=== PATIENT | male | born 1955 | race Caucasian/White ===

== ENCOUNTER 2018-07-17 08:42 | Emergency (ER) | payer MEDICARE, MEDICAID ==
[2018-07-17] MEDS ORDERED: LIDOCAINE PATCH 5% TOP PRN (09:22)
[2018-07-17] MEDS ORDERED: KETOROLAC 60 MG/2 ML VIAL IM STA (09:22)
[2018-07-17] MEDS ORDERED: diazePAM 5 MG TABLET PO STA (09:22)
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
--- NOTE | 2018-07-17 11:01 | XRAY Report ---
Reason: lumbar pain and pop Procedure Date: 07/17/2018 Accession Number: [id number] / [id number] Procedure: XR - Lumbar Spine 2 View CPT Code: FULL RESULT: EXAM: LUMBOSACRAL SPINE RADIOGRAPHY EXAM DATE: 07/17/2018 10:31 AM. CLINICAL HISTORY: Lumbar pain and pop. COMPARISONS: None. TECHNIQUE: 3 views. FINDINGS: Alignment: Grade 1 anterolisthesis L4 on L5 Bones: Five [id number] lumbar vertebral bodies are present. L1 compression. Disks: L3-L4 osteophyte Facets: L5-S1 facet arthropathy Sacroiliac Joints: Unremarkable. Soft Tissues: Normal. The visualized bowel gas pattern is normal. IMPRESSION: 1. L1 compression 2. DJD RADIA
[2018-07-17 12:35] VITALS: BP 113/75
[2018-07-17] MEDS ORDERED: oxyCODONE 5 MG TABLET PO STA (13:43)
== END 2018-07-17 13:52 | disposition home or self-care (01) ==
LOC: ED 08:42
DX: S32.010A Wedge compression fracture of first lumbar vertebra, initial encounter for closed fracture (principal); X50.0XXA Overexertion from strenuous movement or load, initial encounter; Z21 Asymptomatic human immunodeficiency virus [HIV] infection status
CPT/HCPCS: 72100; 99283; A9270

== ENCOUNTER 2022-09-18 08:00 | Outpatient (CLI) | payer MEDICARE, MEDICAID | END 2022-09-18 23:59 | disposition home or self-care (01) | LOC: LAB.R 08:00 | PROVIDERS: ATTEND Internal Medicine | DX: R60.9 Edema, unspecified (principal) | CPT/HCPCS: 83880 ==

== ENCOUNTER 2023-12-19 01:11 | Emergency (ER) | payer MEDICARE, MEDICAID ==
[2023-12-19 01:21] VITALS: O2SAT 99
[2023-12-19 01:31] VITALS: BP 155/105
--- NOTE | 2023-12-19 02:33 | ED Physician Documentation ---
History of Present Illness - Stated complaint Stated Complaint: - Chief complaint Chief Complaint: General - History obtained from History obtained from: Patient - Additonal information Additional information: 68-year-old gentleman with history of HIV and intermittent AIDS presents with right testicular pain and concern that he is growing a mass. Patient repeatedly requesting ritonavir, stating it has shrunk the mass in the past. Patient is very difficult historian. Last CD4 was 1200 about 6 months ago. Patient states he had COVID last month and took Paxlovid to good effect. He is now having the "[place] squirts" (diarrhea) and endorses low-grade fever. denies n/v abdominal pain. PCP Dr. Robin. [facility]. Patient endorses taking daily emtricitabine. PD PAST MEDICAL HISTORY - Past Medical History Past Medical History: Yes - Past Surgical History Past Surgical History: Yes Derm: Skin cancer surgery - Present Medications Home Medications: Ambulatory Orders Medication Instructions Recorded Confirmed Cephalexin 500 mg PO 03/25/14 03/25/14 Sulfamethoxazole/Trimethoprim 1 tab BID 03/25/14 03/25/14 [Bactrim Ds Tablet] oxyCODONE [Roxicodone] 10 mg PO BID 03/25/14 03/25/14 traMADol [Ultram] 150 mg PO BID 03/25/14 03/25/14 Carisoprodol [Soma] 350 mg PO Q8H PRN #15 tablet 07/17/18 Lidocaine Patch 5% [Lidoderm Patch] 1 each TOP DAILY PRN #10 patch 07/17/18 - Allergies Allergies/Adverse Reactions: Allergies Allergy/AdvReac Type Severity Reaction Status Date / Time magnesium [Magnesium] Allergy Severe Hives Verified 05/03/13 23:41 meperidine [From Demerol] Allergy Unknown Verified 07/17/18 08:51 - Social History Does the pt smoke?: No Smoking Status: Never smoker Does the pt drink ETOH?: No Does the pt have substance abuse?: No - Immunizations Immunizations are current?: No - POLST Patient has POLST: No PD ED PE NORMAL - Vitals Vital signs reviewed: Yes - General General: Alert and oriented X 3, No acute distress, Well developed/nourished, Other (morbidly obese) - HEENT HEENT: Atraumatic, PERRL, EOMI, Moist mucous membranes, Pharynx benign - Neck Neck: Supple, no meningeal sign - Cardiac Cardiac: RRR - Respiratory Respiratory: No respiratory distress, Clear bilaterally - Abdomen Abdomen: Non tender, Non distended - Male Male : Other (Large pannus. external male genitalia dwarfed by surrounding tissue. Symmetrical overall appearance of testes. R testicle exquisitely tender to palpation. Patient disallowed exam after palpation of R testicle.) - Back Back: No CVA TTP - Derm Derm: Normal color, No rash Results - Vitals Vitals: Vital Signs - 24 hr 12/19/23 01:15 Temperature 36.5 C Heart Rate 87 Respiratory 20 Rate Blood Pressure 155/105 H O2 Saturation 99 Oxygen O2 Source Room air PD Medical Decision Making - ED course ED course: 68yM with pmh hiv (last cd4 1200 6 months ago) p/w concern that he is developing AIDS, primarily because he is having fever, diarrhea, and R testicular pain with mass like sensation. Patient is difficult historian and refused bloodwork and ultrasound even after we explained the need to diagnose his condition. Call placed to Dr. Brown in hopes to get more guidance about next steps. Patient takes emtricitabine twice daily even though it's supposed to be once daily. He also takes two other antiretroviral meds to good effect (raltegravir and another med). Repeat labs a couple weeks ago showed stable CD4 and negative viral load. From HIV standpoint it makes no sense for him to take ritonavir since he's not taking a PI and it's a PI booster. Patient showed up in clinic one day recently without an appointment demanding ritonavir. He thinks it will shrink his "third testicle" since it improved when he was taking paxlovid when he had covid last month. Dr. Brown told him there was no benefit and he could not prescribe this medicine. I discussed this with the patient and told him I couldn't prescribe ritonavir, but recommended he return to see his very excellent ID doctor again for follow up. He then left without his discharge papers. Departure - Departure Disposition: 01 Home, Self Care Clinical Impression: HIV (human immunodeficiency virus infection) Condition: Stable Instructions: HIV Infec AIDS Dc Comments: You were seen in the emergency department for evaluation of your HIV meds. I talked with your ID doctor who recommended no changes in your meds. Please follow-up with Dr. Brown and return to the emergency department if you have any new or worsening symptoms or other concerns. Forms: PCP List
== END 2023-12-19 02:45 | disposition home or self-care (01) ==
LOC: ED 01:11
DX: N50.811 Right testicular pain (principal); N50.89 Other specified disorders of the male genital organs; R19.7 Diarrhea, unspecified; B20 Human immunodeficiency virus [HIV] disease; Z79.899 Other long term (current) drug therapy
CPT/HCPCS: 80053; 85025; 86361; 99283; 99284